=== PATIENT | male | born 1945 | race Caucasian/White ===

== ENCOUNTER 2018-02-16 16:04 | Emergency (ER) | payer MEDICARE, OTHER ==
[~2018-02-16] VITALS: Ht 190.5 cm; Wt 133.8 kg
[~2018-02-16 16:04] MED LIST: ACETAMINOPHEN325 M1 PO; AMBEREN; APHEN325 MG PO; ASPIRIN EC325 M1 PO; B12INJ; COUMADIN 5 MG TA5 M1 PO; DEPO-TESTO100 MG/1 M; DIOVAN320 MG PO; ENOXAPARIN150 MG/11 INJECTION; FISH OIL 1,0001 EAC5 PO; FLEXERIL PO; GLUCOSAMINE1000 MG PO; IBUPROFEN 800800 M1 PO; IBUPROFEN200 M2 PO; JANTOVEN4 MG; LOPRESSOR25 PO; MSM1500 MG PO; NIASPAN 500 MG500 M1; NORVASC 5 MG TAB5 MG PO; NORVASC10 MG PO; POTASSIUM20 PO; PRILOSEC20 MG PO; PRINIVIL10 MG PO; RED YEAST RICE600 M1 PO; TESTIM5 GM; TOPROL XL25 MG PO; WATER PILL
[2018-02-16] MEDS ORDERED: ANTIVERT25 MG PO (16:18)
[2018-02-16] MEDS ORDERED: NITROGLYCERIN0.4 MG SUBLING (16:18)
[2018-02-16] MEDS ORDERED: NORVASC5 MG PO (16:18)
[2018-02-16] MEDS ORDERED: LASIX 20 MG TAB20 MG PO (16:18)
[2018-02-16 18:48] VITALS: BP 163/107
[2018-02-17] MEDS ORDERED: VITAMINC500 PO (00:18)
[2018-02-17] MEDS ORDERED: ASPIRIN81 M2 PO (00:19)
[2018-02-17] MEDS ORDERED: CALCIUM 500 +1 EAC5 PO (00:39)
[2018-02-17] MEDS ORDERED: GLUCOSAMINE HC500 MG PO (00:40)
[2018-02-17] MEDS ORDERED: MAGOX 400400 MG PO (00:41)
[2018-02-17] MEDS ORDERED: UNICOMPLEX M TA1 TA1 PO (00:42)
[2018-02-17] MEDS ORDERED: NIACIN 500 MG500 M1 PO (00:44)
[2018-02-17] MEDS ORDERED: OMEGA-31000 M1 PO (00:47)
== END 2018-02-16 18:48 | disposition home or self-care (01) ==
LOC: M.ERS 16:04
DX: R04.0 Epistaxis (principal); I48.91 Unspecified atrial fibrillation; I10 Essential (primary) hypertension

== ENCOUNTER 2018-02-16 23:43 | Emergency (ER) | payer MEDICARE, OTHER ==
[~2018-02-16] VITALS: Ht 190.5 cm; Wt 133.8 kg
[~2018-02-16 23:43] MED LIST changes: +ANTIVERT25 MG PO; +LASIX 20 MG TAB20 MG PO; +NITROGLYCERIN0.4 MG SUBLING; +NORVASC5 MG PO
[2018-02-17] MEDS ORDERED: VITAMINC500 PO (00:18)
[2018-02-17] MEDS ORDERED: ASPIRIN81 M2 PO (00:19)
[2018-02-17] MEDS ORDERED: CALCIUM 500 +1 EAC5 PO (00:39)
[2018-02-17] MEDS ORDERED: GLUCOSAMINE HC500 MG PO (00:40)
[2018-02-17] MEDS ORDERED: MAGOX 400400 MG PO (00:41)
[2018-02-17] MEDS ORDERED: UNICOMPLEX M TA1 TA1 PO (00:42)
[2018-02-17] MEDS ORDERED: NIACIN 500 MG500 M1 PO (00:44)
[2018-02-17] MEDS ORDERED: OMEGA-31000 M1 PO (00:47)
[2018-02-17 02:25] VITALS: BP 161/97
== END 2018-02-17 02:26 | disposition home or self-care (01) ==
LOC: M.ERS 23:43
DX: R04.0 Epistaxis (principal); I48.91 Unspecified atrial fibrillation; I10 Essential (primary) hypertension; Z90.49 Acquired absence of other specified parts of digestive tract

== ENCOUNTER 2018-02-22 16:30 | Inpatient (IN) | payer MEDICARE, OTHER ==
[~2018-02-22] VITALS: Ht 190.5 cm; Wt 132.4 kg
--- NOTE | ~2018-02-22 | PROC ---
[address] [address] PROCEDURE REPORT Name: NICOLASA GOMEZ Room: [address] IN M.R.#: [id number] Admission: 02/22/18 Attend Phys: Alfonso Posey Discharge: 02/24/18 Date of : 45 Report #: [id number] THIS REPORT FOR: //name// For GI report, please see the Provation report in Perceptive 7 content. By: [facility]7Medical Records Staff LESLIE /HANY
[~2018-02-22 16:30] MED LIST changes: +ASPIRIN81 M2 PO; +CALCIUM 500 +1 EAC5 PO; +GLUCOSAMINE HC500 MG PO; +MAGOX 400400 MG PO; +NIACIN 500 MG500 M1 PO; +OMEGA-31000 M1 PO; +UNICOMPLEX M TA1 TA1 PO; +VITAMINC500 PO
[2018-02-22 16:43] VITALS: BP 156/97
--- NOTE | 2018-02-22 16:48 | NUR ---
RECTAL EXAM PERFORMED BY PROVIDER.
[2018-02-22 17:18] LABS: ABSOLUTE BASOPHILS 0.1 thou/uL (0.0-0.2); ABSOLUTE EOSINOPHILS 0.3 thou/uL (0.0-0.7); ABSOLUTE LYMPHOCYTES 1.5 thou/uL (0.8-5.3); ABSOLUTE MONOCYTES 0.6 thou/uL (0.0-1.2); ABSOLUTE NEUTROPHILS 5.5 thou/uL (1.6-8.1); BASOPHILS 0.9 %; EOSINOPHILS 3.2 %; HEMATOCRIT 43.4 % (42.0-52.0); LYMPHOCYTES 19.1 %; MCH 33.4 pg (26.0-34.0); MCHC 34.5 g/dL (28.0-37.0); MCV 96.7 fL (80.0-100.0); MONOCYTES 7.9 %; MPV 8.7 fl. (7.2-11.1); NUCLEATED RBCS 0 /100WBC; PLATELET COUNT* 181 thou/uL (150-400); POLYS 68.9 %; RBC 4.49 mil/uL (4.50-6.00); RDW-CV 13.7 % (10.5-14.5); WBC 7.9 thou/uL (4.0-11.0)
[2018-02-22 17:47] LABS: CALCIUM 9.2 mg/dL (8.5-10.1); POTASSIUM 4.4 mmol/L (3.5-5.1)
[2018-02-22 17:48] LABS: APTT 48.6 Seconds (25.0-31.3); PROTIME 18.9 Seconds (9.20-11.50)
[2018-02-22 17:51] LABS: ALBUMIN 3.7 g/dL (3.4-5.0); TOTAL PROTEIN 6.9 g/dL (6.4-8.2)
[2018-02-22 20:18] VITALS: BP 142/82
[2018-02-22 20:45] VITALS: BP 174/93
[2018-02-22 21:08] LABS: HEMATOCRIT 45.1 % (42.0-52.0); HEMOGLOBIN 15.2 gm/dL (14.0-18.0)
[2018-02-22 21:14] LABS: INR 1.8; PROTIME 17.6 Seconds (9.20-11.50)
[2018-02-23] VITALS: BP 146/94
[2018-02-23 04:00] VITALS: BP 123/66
[2018-02-23 06:06] LABS: HEMATOCRIT 42.3 % (42.0-52.0); HEMOGLOBIN 14.5 gm/dL (14.0-18.0)
[2018-02-23 06:15] LABS: INR 1.6; PROTIME 15.9 Seconds (9.20-11.50)
[2018-02-23 08:30] VITALS: BP 125/78
[2018-02-23 08:56] LABS: HEMATOCRIT 44.1 % (42.0-52.0)
[2018-02-23 09:07] LABS: INR 1.5; PROTIME 14.8 Seconds (9.20-11.50)
[2018-02-23 12:00] VITALS: BP 163/97
[2018-02-23 13:13] LABS: HEMATOCRIT 45.7 % (42.0-52.0); HEMOGLOBIN 15.5 gm/dL (14.0-18.0)
[2018-02-23 13:28] LABS: INR 1.5; PROTIME 14.2 Seconds (9.20-11.50)
[2018-02-23 16:00] VITALS: BP 153/98
[2018-02-23 17:19] LABS: HEMATOCRIT 45.3 % (42.0-52.0); HEMOGLOBIN 15.3 gm/dL (14.0-18.0)
[2018-02-23 17:24] LABS: INR 1.5; PROTIME 14.1 Seconds (9.20-11.50)
--- NOTE | 2018-02-23 18:57 | NUR ---
ASSUMED PT CARE AT 0700 PT IS ALERT AND ORIENTED X 4 PT DENIES PAIN OR SOA ON RA, PT IS UP AD ANUSHKA PT IS NOT A FALL RISK, PT REFUSED SUPPLEMENTS AND CERTAIN MEDS THIS AM, PT IS AFIB ON THE MONITOR, GI SAW PT WILL SO A COLONOSCOPY TOMORROW PT IS NPO AT MIDNIGHT, STARTED BOWEL PREP AROUND 1500 PT TAKING MIRALAX AND GACE BISACODYL AROUND 1800 PT IS ON CLEAR LIQUID DIET WILL CONTINUE TO MONITOR GOT LISINOPRIL AND METOPROLOL CHANGED TO BEDTIME PT TAKES THESE AT HOME AT THOSE TIMES
[2018-02-23 19:42] VITALS: BP 132/80
[2018-02-23 21:03] LABS: HEMATOCRIT 44.8 % (42.0-52.0); HEMOGLOBIN 15.2 gm/dL (14.0-18.0)
[2018-02-23 21:12] LABS: INR 1.4; PROTIME 13.6 Seconds (9.20-11.50)
[2018-02-24] VITALS (7 sets, daily range): BP systolic 127–153; BP diastolic 79–99
[2018-02-24 04:35] LABS: HEMATOCRIT 43.3 % (42.0-52.0); HEMOGLOBIN 14.6 gm/dL (14.0-18.0); MCH 33.1 pg (26.0-34.0); MCHC 33.9 g/dL (28.0-37.0); MCV 97.9 fL (80.0-100.0); MPV 9.1 fl. (7.2-11.1); RBC 4.42 mil/uL (4.50-6.00); RDW-CV 13.8 % (10.5-14.5); WBC 8.4 thou/uL (4.0-11.0)
[2018-02-24 04:50] LABS: ALBUMIN 3.6 g/dL (3.4-5.0); CALCIUM 8.4 mg/dL (8.5-10.1); CREATININE 0.7 mg/dL (0.6-1.3); POTASSIUM 3.9 mmol/L (3.5-5.1); TOTAL BILIRUBIN 1.1 mg/dL (<0.1-1.0); TOTAL PROTEIN 6.3 g/dL (6.4-8.2)
--- NOTE | 2018-02-24 04:52 | NUR ---
PT AAOX4 RESP REG AND UNLABORED SKIN W/D NO ACUTE DISTRESS NOTED. PT COMPLETED BOWEL PREP AND HAS HAD SOME LIGHT YELLOW LIQUID STOOL. VSS. TELEMETRY PACK INTACT WITH ALARMS SET. NO ACUTE CHANGES DURIGN SHIFT. NO RECTAL BLEEDING REPORTED. WILL CONTIUE TO MONITOR
[2018-02-24] MEDS ORDERED: LISINOPRIL20 MG PO (11:22)
--- NOTE | 2018-02-24 12:54 | EKG ---
[place] [address] ELECTROCARDIOGRAM REPORT Name: NICOLASA GOMEZ Room: [address] IN .R.#: [id number] Admission: 02/22/18 Attend Phys: Alfonso Posey Discharge: Date of : 45 Report #: [id number] THIS REPORT FOR: //name// [facility] ED Test Date: 2018-02-22 Test Time: 19:44:05 Pat Name: NICOLASA GOMEZ Department: Room: Gender: M [employer] Tender: : 1945 Requested By: Roland Quinones Order Number: [id number] MD: Merrill Hurtado Measurements Intervals [place] Rate: 71 P: [place]: QRS: 36 QRSD: 114 T: 8 QT: 401 QTc: 436 Interpretive Statements Atrial fibrillation Borderline intraventricular conduction delay Compared to ECG 06/05/2012 08:08:39 Ventricular premature complex(es) no longer present Electronically Signed On 02-24-2018 12:53:51 CDT by Merrill Hurtado [email or web address] <ELECTRONICALLY SIGNED> By: Merrill Hurtado MD, [facility] 02/24/18 1253 43 43 Merrill Hurtado MD, FAC /EPI
--- NOTE | 2018-02-24 15:46 | NUR ---
CM SPOKE TO THE PATIENT TO DISCUSS HOME SITUATION, DISCHARGE PLANNING, AND TO INFORM OF THE ROLE OF CM. PATIENT ALERT AND ORIENTED. PATIENT ACTIVE AND INDEPENDENT PRIOR TO ADMISSION. PATIENT RESIDES AT HOME WITH SPOUSE. PATIENT USES 0 DME. PATIENT PLANS TO RETURN HOME AT D/C AND DOES NOT ANTICIATE ANY DISCHARGE PLANNING NEEDED. CM WILL REMAIN AVIALABLE TO ASSIST AND FOLLOW NEEDED.
--- NOTE | 2018-03-07 07:11 | CON ---
[address] [address] CONSULTATION Name: NEAL GOMEZ Room: [address] IN .R.#: [id number] Admission: 02/22/18 Attend Phys: Alfonso Posey Discharge: 02/24/18 Date of : 45 Report #: [id number] THIS REPORT FOR: //name// CC: MARQUITA Jarrell DICTATED BY: Nicole Rivera [facility] DATE OF SERVICE: 02/23/2018 Please note at the time of this dictation, the patient was seen and physically examined by myself. REFERRING PHYSICIAN: Neal Jarrell DO PRIMARY CARE PHYSICIAN: Dr. Marquita Null. REASON FOR CONSULTATION: Rectal bleeding. HISTORY OF PRESENT ILLNESS: This is a pleasant 72-year-old male who presented to the Emergency Room after having 2 bowel movements yesterday without any straining, and he had significant amount of bright red blood noted in the toilet. The patient on 02/16 had been presented here to the Emergency Room with a nosebleed and has had nasal packing placed at that time. He went to the ENT on Wednesday to remove the packing, and he was still having some oozing once the packing was removed. ENT recommended that he stay off his warfarin until Wednesday. Subsequently the following day is when he started having the bright red blood in his stool. The patient denies any history of any constipation or diarrhea. He has no nausea or vomiting or abdominal pain associated with all of this. The patient states he had a colonoscopy done 4-[address] Buenrostro. He thinks he had diverticulosis, otherwise was negative. We will go ahead and obtain those records for our review at this time. ALLERGIES: No known drug allergies. MEDICATIONS FROM HOME: Include potassium, omega 3, niacin, multivitamin, magnesium oxide, glucosamine, Os-Boyd, aspirin, vitamin C, Antivert, Norvasc, Lasix, warfarin, Prinivil and Toprol. PAST MEDICAL HISTORY: Chronic AFib, hypertension. He has had a cardioversion at least 4 different times. PAST SURGICAL HISTORY: Appendectomy, ear surgeries, hernia repair. FAMILY HISTORY: Negative for any GI [place] [address] CONSULTATION Name: NEAL GOMEZ Room: [address]#: [id number] Admission: 02/22/18 Attend Phys: Alfonso Posey Discharge: 02/24/18 Date of : 45 Report #: [id number] SOCIAL HISTORY: Alcohol only on special occasions. Denies any illegal drug use or any tobacco use. REVIEW OF SYSTEMS: Twelve-point review of systems is essentially negative except what is mentioned in the HPI. PHYSICAL EXAMINATION: VITAL SIGNS: Temperature 36.9, pulse 67, respirations 15, blood pressure 124/78. HEART: Regular rate and rhythm. LUNGS: Clear. ABDOMEN: Soft, positive bowel sounds in all 4 quadrants with no masses or tenderness noted. LABORATORY DATA: Hemoglobin on admission was 14.8, he is now 15. Hematocrit 44, white count 7.9, platelets 181. Sodium 138, potassium 4.4, chloride 106, CO2 of 29, BUN is 28, creatinine 1, GFR [address] glucose is [address] of the abdomen and pelvis shows a lipoma in the liver, gallbladder present and diverticulosis, otherwise negative. PT was 14.8 and INR is 1.5. This morning on admission, he was 2. IMPRESSION: 1. Rectal bleeding. 2. Anticoagulant therapy secondary to atrial fibrillation, on warfarin. 3. Diverticulosis. PLAN: 1. Obtain medical records from Dr. Buenrostro's office EMANUEL. 2. Colonoscopy tomorrow with Dr. Grewal. 3. Continue to hold his warfarin. 4. Further recommendations to be made once the patient has been seen. Thank you for allowing us to participate in this patient's care. Please do not hesitate to call with any questions in regard to this consult. ADDENDUM I have seen and examined the patient and agree with the plan as outlined by our nurse practitioner, Nicole Rivera. We will proceed with colonoscopy tomorrow. Since he is not really having any issues with overt hematochezia at this point in time, I will discontinue his serial H and H and protime as labs are completely stable. We will proceed with colonoscopy and see if there is anything that is amenable to endoscopic therapy. If so, [place] [address] CONSULTATION Name: NEAL GOMEZ Room: [address] IN [facility]#: [id number] Admission: 02/22/18 Attend Phys: Alfonso Posey Discharge: 02/24/18 Date of : 45 Report #: [id number] the same. I have discussed the plans with the patient as well and he is agreeable with the same. <ELECTRONICALLY SIGNED> By: Elton Grewal DO 03/07/18710 1226 1830Elton Grewal DO /nt
--- NOTE | 2018-03-16 06:05 | PATH ---
[facility] [address] [place] [address] PATHOLOGY RPT PROCEDURE Name: NEAL GOMEZ Room: [address] IN M.R.#: [id number] Admission: 02/22/18 Date of : 45 Discharge: 02/24/18 Report #: [id number] Path Case #: [id number] [facility] Accession Number: [id number] . 01 Material submitted: . PART A: MID ASCENDING COLON POLYP PART B: PROXIMAL TRANSVERSE COLON POLYP PART C: MID TRANSVERSE COLON POLYP . 01 Clinical history: . Not provided . 02 Diagnosis: A. Mid ascending colon polyp: - Tubular adenoma, negative for high-grade dysplasia. . B. Proximal transverse colon polyp: - Hyperplastic polyp. . C. Mid transverse colon polyp: - Tubular adenoma, negative for high-grade dysplasia. (ARLEN:dipak; 02/28/2018) QMS/02/28/2018 . 02 Electronically signed: . Jayme Mac MD, Pathologist NPI- [id number] . 01 Gross description: . A. Received in formalin labeled "Neal Gomez, mid ascending colon polyp" and consists of 2 soft willson tissue fragments, 0.3 and 0.6 cm which are entirely submitted as A1. . B. Received in formalin labeled "Neal Gomez, proximal transverse colon polyp" and consists of a 0.2 cm soft willson tissue fragment is entirely submitted as B1. . C. Received in formalin labeled "Neal Gomez, mid transverse colon polyp" and consists of 4 soft willson tissue fragments ranging in size from less than 0.1 cm-0.2 cm which are entirely submitted as C1. (SINCERE; 02/25/2018) JBR/JBR . 02 Pathologist provided ICD-10: D12.2, K63.5, D12.3 . 02 CPT . 846594, 849964, 897130 [place] [address] PATHOLOGY RPT PROCEDURE Name: NEAL GOMEZ Room: [address] IN [facility]#: [id number] Admission: 02/22/18 Date of : 45 Discharge: 02/24/18 Report #: [id number] Path Case #: [id number] Performed at: 01 [facility] [place] [address] [place] [address] [address], [place], [place] [id number] MD Augustus Pepper MD Phone: [phone] Performed at: [address] [facility] [address] [place], [place], [place] [address] MD Jayme Mac MD Phone: [phone]
== END 2018-02-24 18:58 | disposition home or self-care (01) | DRG 394 ==
LOC: M.ERS 16:30 → M.2W 19:37 → M.TBA-ER 19:37 → M.2W 20:28
PROVIDERS: Internal Medicine; Personal Emergency Response Attendant; Physician Assistant; ADMIT Internal Medicine
PROC: 0DBL8ZZ Excision of Transverse Colon, Via Natural or Artificial Opening Endoscopic (ICD-10-PCS; principal; 2018-02-24)
PROC: 0DBK8ZZ Excision of Ascending Colon, Via Natural or Artificial Opening Endoscopic (ICD-10-PCS; principal; 2018-02-24)
DX: K64.9 Unspecified hemorrhoids (principal); E87.1 Hypo-osmolality and hyponatremia; D68.69 Other thrombophilia; I48.2 Chronic atrial fibrillation; I10 Essential (primary) hypertension; I25.10 Atherosclerotic heart disease of native coronary artery without angina pectoris; Z79.01 Long term (current) use of anticoagulants; Z95.1 Presence of aortocoronary bypass graft; Z90.49 Acquired absence of other specified parts of digestive tract

== ENCOUNTER → 2018-03-04 | Outpatient (CLI) | payer MEDICARE, OTHER ==
[~2018-03-04] MED LIST changes: +COUMADIN7.5 MG PO; +LISINOPRIL20 MG PO; +VITAMIN B-1100 M1 PO
[2018-03-04 14:44] LABS: ABSOLUTE BASOPHILS 0.1 thou/uL (0.0-0.2); ABSOLUTE EOSINOPHILS 0.3 thou/uL (0.0-0.7); ABSOLUTE LYMPHOCYTES 1.5 thou/uL (0.8-5.3); ABSOLUTE MONOCYTES 0.5 thou/uL (0.0-1.2); ABSOLUTE NEUTROPHILS 4.6 thou/uL (1.6-8.1); BASOPHILS 1.1 %; EOSINOPHILS 3.9 %; HEMATOCRIT 43.3 % (42.0-52.0); HEMOGLOBIN 14.9 gm/dL (14.0-18.0); LYMPHOCYTES 21.6 %; MCH 33.1 pg (26.0-34.0); MCHC 34.3 g/dL (28.0-37.0); MCV 96.6 fL (80.0-100.0); MONOCYTES 7.6 %; MPV 8.4 fl. (7.2-11.1); NUCLEATED RBCS 0 /100WBC; PLATELET COUNT* 183 thou/uL (150-400); POLYS 65.8 %; RBC 4.48 mil/uL (4.50-6.00); RDW-CV 13.3 % (10.5-14.5); WBC 6.9 thou/uL (4.0-11.0)
== END ==
LOC: M.LAB 14:24
PROVIDERS: Internal Medicine Cardiovascular Disease
DX: I10 Essential (primary) hypertension (principal); I48.2 Chronic atrial fibrillation; I25.10 Atherosclerotic heart disease of native coronary artery without angina pectoris; I25.5 Ischemic cardiomyopathy; E78.5 Hyperlipidemia, unspecified; Z95.1 Presence of aortocoronary bypass graft

== ENCOUNTER 2018-03-29 13:55 | Observation (INO) | payer MEDICARE, OTHER ==
[~2018-03-29] VITALS: Ht 190.5 cm; Wt 131.5 kg
[~2018-03-29 13:55] MED LIST changes: -COUMADIN7.5 MG PO; -VITAMIN B-1100 M1 PO
[2018-03-29 14:00] VITALS: BP 175/103
[2018-03-29 14:22] LABS: ABSOLUTE BASOPHILS 0.1 thou/uL (0.0-0.2); ABSOLUTE EOSINOPHILS 0.3 thou/uL (0.0-0.7); ABSOLUTE LYMPHOCYTES 1.4 thou/uL (0.8-5.3); ABSOLUTE MONOCYTES 0.6 thou/uL (0.0-1.2); ABSOLUTE NEUTROPHILS 4.4 thou/uL (1.6-8.1); BASOPHILS 0.9 %; EOSINOPHILS 3.9 %; HEMATOCRIT 45.7 % (42.0-52.0); HEMOGLOBIN 15.8 gm/dL (14.0-18.0); MCH 33.3 pg (26.0-34.0); MCHC 34.6 g/dL (28.0-37.0); MCV 96.3 fL (80.0-100.0); MONOCYTES 8.9 %; MPV 8.5 fl. (7.2-11.1); NUCLEATED RBCS 0 /100WBC; PLATELET COUNT* 151 thou/uL (150-400); POLYS 65.3 %; RBC 4.74 mil/uL (4.50-6.00); RDW-CV 14.2 % (10.5-14.5); WBC 6.7 thou/uL (4.0-11.0)
[2018-03-29 14:28] LABS: ANION GAP 9 mmol/L (7-16); BUN 23 mg/dL (7-18); CALCIUM 8.7 mg/dL (8.5-10.1); CHLORIDE 103 mmol/L (98-107); CO2 27 mmol/L (21-32); CREATININE 0.9 mg/dL (0.6-1.3); GLUCOSE 86 mg/dL (70-99); SODIUM 139 mmol/L (136-145)
[2018-03-29 14:30] LABS: APTT 46.4 Seconds (25.0-31.3); PROTIME 19.4 Seconds (9.20-11.50)
[2018-03-29] MEDS ORDERED: VITAMIN B-1100 M1 PO (14:32)
[2018-03-29] MEDS ORDERED: COUMADIN7.5 MG PO (14:33)
[2018-03-29] MEDS ORDERED: COUMADIN 5 MG TA5 M1 PO (14:34)
[2018-03-29 14:38] LABS: ALBUMIN 4.4 g/dL (3.4-5.0); ALKALINE PHOSPHATASE 59 U/L (46-116); NT-PRO BRAIN NAT PEPTIDE 889 pg/mL (<300); SGOT 24 U/L (15-37); SGPT 32 U/L (30-65); TOTAL PROTEIN 7.3 g/dL (6.4-8.2); TROPONIN-I LEVEL <0.06 ng/mL (<0.06)
[2018-03-29 14:56] LABS: URINE BILIRUBIN NEGATIVE (Negative); URINE BLOOD NEGATIVE (Negative); URINE CLARITY CLEAR; URINE COLOR YELLOW; URINE GLUCOSE-RANDOM NEGATIVE (Negative); URINE KETONES NEGATIVE (Negative); URINE LEUKOCYTES-REFLEX NEGATIVE (Negative); URINE NITRITE-REFLEX NEGATIVE (Negative); URINE PROTEIN NEGATIVE (Negative); URINE SPECIFIC GRAVITY 1.015 (1.005-1.030); URINE UROBILINOGEN 0.2 E.U./dl (0.2-1.0)
[2018-03-29 15:29] VITALS: BP 181/98
[2018-03-29 16:08] VITALS: BP 183/117
[2018-03-29 19:30] VITALS: BP 148/97
[2018-03-30] VITALS: BP 160/99; BP 174/104; BP 181/112
[2018-03-30 04:00] VITALS: BP 135/81
[2018-03-30 08:15] VITALS: BP 155/78
--- NOTE | 2018-03-30 11:56 | EKG ---
[place] [address] ELECTROCARDIOGRAM REPORT Name: NICOLASA GOMEZ Room: [address] ADM IN .R.#: [id number] Admission: 03/29/18 Attend Phys: Alfonso Posey Discharge: Date of : 45 Report #: [id number] THIS REPORT FOR: //name// [facility] ED Test Date: 2018-03-29 Test Time: 14:22:05 Pat Name: NICOLASA GOMEZ Department: Room: [facility] Gender: I O Psychologist: Ramin PONCE : 1945 Requested By: Stephen Feng Order Number: [id number] MD: Gerber Mclean Measurements Intervals [place] Rate: 74 P: [place]: QRS: -14 QRSD: 109 T: 12 QT: 395 QTc: 439 Interpretive Statements Atrial fibrillation consider Inferior infarct, old Compared to ECG 02/22/2018 19:44:05 Myocardial infarct finding now present Electronically Signed On 03-30-2018 11:56:19 CDT by Gerber Mclean [email or web address] <ELECTRONICALLY SIGNED> By: Gerber Mclean MD, [facility] 03/30/18 1156 1422 142 Gerber Mclean MD, [facility] /EPI
[2018-03-30 12:00] VITALS: BP 141/84
--- NOTE | 2018-03-30 12:03 | EKG ---
[place] [address] ELECTROCARDIOGRAM REPORT Name: NEAL GOMEZ Room: [address] ADM IN M.R.#: [id number] Admission: 03/29/18 Attend Phys: Alfonso Posey Discharge: Date of : 45 Report #: [id number] THIS REPORT FOR: //name// [facility] Test Date: 2018-03-30 Test Time: 00:54:23 Pat Name: NEAL GOMEZ Department: Room: [address] Gender: M Lines Tender: JENNY : 1945 Requested By: Neal Jarrell Order Number: [id number] Hien MD: Gerber Mclean Measurements Intervals [place] Rate: 65 P: [place]: QRS: 19 QRSD: 114 T: 35 QT: 437 QTc: 455 Interpretive Statements Atrial fibrillation Borderline intraventricular conduction delay Electronically Signed On 03-30-2018 12:03:28 CDT by Gerber Mclean [email or web address] <ELECTRONICALLY SIGNED> By: Gerber Mclean MD, [facility] 03/30/18 1203 0054 0054 Gerber Mclean MD, FACC /EPI
[2018-03-30 16:23] VITALS: BP 139/97
--- NOTE | 2018-03-30 17:00 | 2DMMODE ---
[place] [address] 2 D/M-MODE ECHOCARDIOGRAM Name: NEAL GOMEZ Room: [facility]- ADM IN [facility]#: [id number] Admission: 03/29/18 Attend Phys: Neal Jarrell Discharge: Date of : 45 Date of Service: 03/30/18 1700 Report #: [id number] THIS REPORT FOR: //name// APPROVED REPORT Study performed: 03/30/2018 16:19:22 EXAM: Comprehensive 2D, Doppler, and color-flow Echocardiogram Patient Location: In-Patient Room #: 221 Status: routine BSA: 2.57 HR: 63 bpm BP: 141/84 mmHg Rhythm: Atrial Fibrillation Other Information Study Quality: Good Indications AMS, dizziness 2D Dimensions LVEF(%): 42.88 (>50%) IVSd: 12.30 (7-11mm) LVOT Diam: 24.41 (18-24mm) LVDd: 62.00 mm PWd: 11.81 (7-11mm) Ascending Ao: 38.47 (22-36mm) LVDs: 48.62 (25-40mm) Aortic Root: 41.00 mm Hood's LVEF: 42.88 % Volumes Left Atrial Volume (Systole) LA ESV Index: 58.00 mL/m2 Aortic Valve AoV Peak Bunny.: 1.23 m/s AO Peak Gr.: 6.07 mmHg LVOT Max P.48 mmHg AO Mean Gr.: 3.52 mmHg LVOT Mean P.04 mmHg LVOT Max V: 1.06 m/s AO V2 VTI: 24.74 cm LVOT Mean V: 0.64 m/s NATALI (VTI): 4.15 cm2 LVOT V1 VTI: 21.93 cm Mitral Valve MV Decel. Time: 156.43 [place] [address] 2 D/M-MODE ECHOCARDIOGRAM Name: NEAL GOMEZ Room: [address] IN .R.#: [id number] Admission: 03/29/18 Attend Phys: Neal Jarrell Discharge: Date of : 45 Date of Service: 03/30/18 1700 Report #: [id number] MV PHT: 45.36 ms MVA (PHT): 4.85 cm2 TDI Medial E' Bunny.: 0.09 m/s Lateral E' Bunny.: 0.11 m/s Pulmonary Valve PV Peak Bunny.: 0.82 m/s PV Peak Gr.: 2.68 mmHg Tricuspid Valve RAP Estimate: 5.00 mmHg TR Peak Gr.: 24.95 mmHg RVSP: 29.95 mmHg PA Pressure: 29.95 mmHg Left Ventricle Left ventricle is mildly dilated. There is mild global hypokinesis. Mild concentric left ventricular hypertrophy. Left ventricular systolic function is mildly decreased. LVEF is 45-50%. This study is not technically sufficient to allow evaluation of the LV diastolic function due to atrial fibrillation. Right Ventricle Right ventricle is mildly dilated. The right ventricular systolic function is normal. Atria Left atrium is severely dilated. Right atrium is moderately dilated. Aortic Valve The aortic valve is normal in structure. No aortic regurgitation is present. There is no aortic valvular stenosis. Mitral Valve The mitral valve is normal in structure. Mild mitral regurgitation. No evidence of mitral valve stenosis. Tricuspid Valve The tricuspid valve is normal in structure. Mild tricuspid regurgitation. The RVSP is 31 mmHg. Pulmonic Valve The pulmonary valve is normal in structure. Mild [place]mon[place] [address] 2 D/M-MODE ECHOCARDIOGRAM Name: NEAL GOMEZ Room: [address] IN [facility]#: [id number] Admission: 03/29/18 Attend Phys: Neal Jarrell Discharge: Date of : 45 Date of Service: 03/30/18 1700 Report #: [id number] Great Vessels The aortic root is normal in size. IVC is normal in size and collapses with >50% inspiration Pericardium There is no pericardial effusion. <Conclusion> Left ventricle is mildly dilated. Mild concentric left ventricular hypertrophy. Left ventricular systolic function is mildly decreased. LVEF is 45-50%. This study is not technically sufficient to allow evaluation of the LV diastolic function due to atrial fibrillation. There is mild global hypokinesis. Right ventricle is mildly dilated. Left atrium is severely dilated. Right atrium is moderately dilated. Mild mitral regurgitation. Mild tricuspid regurgitation. The RVSP is 31 mmHg. <ELECTRONICALLY SIGNED> By: Chris Leal MD, FACC 03/30/181699 99 99 Chris Leal MD, FACC /INF
[2018-03-30 18:33] VITALS: BP 139/97
[2018-03-31 07:25] LABS: CHOLESTEROL 204 mg/dL (<200); HDL CHOLESTEROL 40 mg/dL (>40); LDL CHOLESTEROL 142 mg/dL (<100); TC:HDL 5.1 Ratio (Not establshd); TRIGLYCERIDE 113 mg/dL (<150); VLDL 23 mg/dL (<40)
[2018-03-31 07:26] LABS: SERUM ASSESSMENT Clear
--- NOTE | 2018-04-01 17:14 | CON ---
[address] [address] CONSULTATION Name: NICOLASA GOMEZ Room: [address] Latonya Isaac#: [id number] Admission: 03/29/18 Attend Phys: Alfonso Posey Discharge: 03/30/18 Date of : 45 Report #: [id number] THIS REPORT FOR: //name// CC: Merrill Jarrell DATE OF SERVICE: 03/30/2018 CARDIOLOGY CONSULTATION HISTORY OF PRESENT ILLNESS: The patient is a 72-year-old white male who I was asked to see in the hospital today because of his history of atrial fibrillation. The patient has an extensive and complicated past medical history. Unfortunately, most of his records are at [facility]. The patient has had atrial fibrillation since the . He previously saw Dr. Goodwin. He apparently had 3 cardioversions in the past, but had recurrent atrial fibrillation and has finally decided to aim for rate control and anticoagulation. He has been on warfarin for years. He has been on metoprolol for rate control. He apparently had a nosebleed a month ago and had to have his nose packed. Several months ago, he had episodes where the room was spinning. He was told he had vertigo. He was given a sedative. Recently, he also had blood in stool and had a colonoscopy and had a polyp removed. The patient notes he actually saw Dr. Escamilla, his inside sales administrator at [facility] a week ago. No changes were made in his medications. However, recently, he complained of lightheaded spells. He denied any vomiting or diarrhea. He has had no syncope. He denies his heart racing. He denies any chest pain. He does get short of breath on exertion, has chronic edema. PAST MEDICAL HISTORY: He has had an appendectomy, hernia repair, hypertension, hyperlipidemia. MEDICATIONS: Consists of amlodipine, aspirin, Lasix for chronic edema, lisinopril, metoprolol, niacin, potassium, warfarin. ALLERGIES: HE HAS AN INTOLERANCE TO STATIN DRUGS. FAMILY HISTORY: Positive for heart disease. SOCIAL HISTORY: He is . He and his live outside [place], [place]. 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 He exercised on a stationary bicycle. No smoking or alcohol abuse. REVIEW OF SYSTEMS: He has had no history of stroke, asthma, peptic ulcer disease, liver disease, kidney disease, cancer, psychiatric illness, [place] [address] CONSULTATION Name: ESCOBARALVAREZNICOLASA Ramin Room: [address] Marlin#: [id number] Admission: 03/29/18 Attend Phys: Alfonso Posey Discharge: 03/30/18 Date of : 45 Report #: [id number] PHYSICAL EXAMINATION: GENERAL: Revealed an elderly male who appeared in no distress. VITAL SIGNS: He had a blood pressure of 160/80, pulse 66. He is afebrile. HEENT: Pupils are anicteric. Conjunctivae pink. Mucous members moist. NECK: Neck veins do not appear distended. No carotid bruits. Neck supple. CHEST: Clear to auscultation. CARDIOVASCULAR: Irregular rhythm. ABDOMEN: Soft. EXTREMITIES: Had trace edema. Dorsalis pedis pulse not palpated. SKIN: Cool and dry. NEUROLOGIC: Nonfocal. LYMPH: No adenopathy. MUSCULOSKELETAL: No joint effusion. ECG, atrial fibrillation with controlled response. His workup, he had x-rays so far that included head CT scan without contrast that showed no significant abnormality. His chest x-ray yesterday showed mild cardiomegaly. LABORATORY DATA: Sodium 139, creatinine 0.9. Liver function studies were normal. Troponin 0.06. BNP 889. His TSH was 1.7. White blood cell count 6.7, hemoglobin 15.8. INR 2.0. IMPRESSION AND RECOMMENDATIONS: 1. Lightheaded spells, reason unclear. I would suggest given his high blood pressure medications at different times. I will consider giving the amlodipine at night time, lisinopril at noon and metoprolol in the morning. 2. Atrial fibrillation. Rate controlled with a beta el. I would continue anticoagulation, maintain his INR 2-3. 3. Coronary artery disease, previous bypass surgery. Since the patient is on warfarin, I would not recommend aspirin. 4. Hypertension. The patient on a calcium el, GELACIO inhibitor and beta el. 5. Hyperlipidemia. The patient cannot tolerate statin drugs. I would suggest taking 1 red yeast rice tablets twice a day. His lipid profile in August showed a cholesterol of 169, triglyceride 66, HDL 43, LDL 113. 6. History of vertigo. 7. Previous removal of colon polyp. 8. Recent nosebleed. <ELECTRONICALLY SIGNED> By: Gerber Mclean MD, [facility] 04/01/18 1714 1016 0058Dadeanne Mclean MD, [facility] /nt
--- NOTE | 2018-04-04 17:33 | EEG ---
[address] [address] EEG STUDY REPORT Name: NICOLASA GOMEZ Room: [address] M.RLena#: [id number] Admission: 03/29/18 Attend Phys: Alfonso Posey Discharge: 03/30/18 Date of : 45 Report #: [id number] THIS REPORT FOR: //name// CC: Merrill Jarrell DATE OF SERVICE: 03/30/2018 This patient is being evaluated for multiple episodes of vertigo. EEG is being done to evaluate for the possibility of seizure. EEG was done by placing the electrodes by standard 10-20 system of electrode placement. Both referential and sequential montages were used for recording. Background activity in this patient's EEG is about 10-11 Hz and 40 microvolt. The patient went to sleep that was associated with bilaterally symmetrical sleep spindle and vertex sharp waves. Photic stimulation was unremarkable. Throughout the record, no active epileptiform activity was noticed. IMPRESSION: This patient's EEG was unremarkable. Thank you very much for this referral. <ELECTRONICALLY SIGNED> By: Galileo García MD 04/04/18 1733 1116 1140Galileo García MD /nt
--- NOTE | 2018-04-04 17:33 | CON ---
[address] [address] CONSULTATION Name: NICOLASA GOMEZ Room: [address] Latonya Isaac#: [id number] Admission: 03/29/18 Attend Phys: Alfonso Posey Discharge: 03/30/18 Date of : 45 Report #: [id number] THIS REPORT FOR: //name// CC: Merrill Jarrell DATE OF SERVICE: 03/30/2018 HISTORY OF PRESENT ILLNESS: This is a 72-year-old male patient who was evaluated by me for an episode of dizziness. The patient gives a history that he woke up yesterday with an episode of dizziness. He was also wobbly. If he moved his head, it made it worse. If he was in upright position, that was also worse. He described his dizziness as severe. He had two more episodes with the last 2 months. He saw an ENT physician who gave him some exercises and also gave him some medication, which he did not take because it made him sleepy. His episode resolves within an hour or so. He also has some nonspecific symptoms with the head in the last few weeks. REVIEW OF SYSTEMS: Indicates that he has no prior history of stroke. He may have an episode of diplopia. He had a pretty severe episode of epistaxis. I carried out rest of the 14-point review of system, which looks mostly unremarkable. It does look like when he came here, he was significantly hypertensive. His EKG does indicate he has atrial fibrillation. It looks like he is on Coumadin, but at one time, he also had what looks like pretty severe epistaxis, but he is not having that problem presently. Rest of the 14-point review of system was unremarkable, and presently, he was not complaining of any ophthalmological symptoms. He is not complaining of any cardiac, respiratory, GI, , musculoskeletal, constitutional, dermatological, hematological, psychiatric, throat or allergic symptom associated with present symptomatology. PAST MEDICAL HISTORY: Positive for 2 episodes of dizziness. FAMILY HISTORY: Unremarkable. SOCIAL HISTORY: He drinks occasionally. PHYSICAL EXAMINATION: VITAL SIGNS: His blood pressure is 155/78, respirations 18, pulse is 56, temperature is 98.4. NEUROLOGIC: Indicate that he is alert, responsive, able to follow simple and complex command. His speech, concentration, fund of knowledge and memory is at his baseline. Cranial nerve examination 2-12 looks unremarkable. His strength, sensation, reflexes and tone is symmetrical. He has no cerebellar sign or papilledema. There is no carotid bruit. There is no thyroid mass. He is a reasonably well-developed individual who does not have any dysmorphic features of eyes, [place] [address] CONSULTATION Name: NICOLASA GOMEZ Room: [address] Latonya Isaac#: [id number] Admission: 03/29/18 Attend Phys: Alfonso Posey Discharge: 03/30/18 Date of : 45 Report #: [id number] HEENT: His hearing and vision looks adequate. His pulses are somewhat difficult to feel. He has no edema, cyanosis or jaundice. HEART: His heart , but he has a history of atrial fibrillation. LUNGS: No respiratory difficulty or rhonchi was noticed on either side. LABORATORY DATA: His white count is 6.7. His sodium is 139. He did have a CT scan of the head in the Emergency Room that was mostly unremarkable. The sodium has been normal. IMPRESSION: The patient presents with an episode of dizziness. Because of that, I think we should exclude the posterior fossa pathology, especially we should exclude the possibility of posterior circulation abnormality by doing an MRI in this patient, but more emphasis should be on evaluating for ENT pathology bigger and for that, he may have to see somebody as an outpatient because nobody else comes here. I will also suggest getting a cardiology consult in this patient because he was hypertensive and he has a history of atrial fibrillation and that may have to be monitored more closely as an outpatient to make sure that does not become intermittently irregular. I will check the MRI and MRA to see if there is any systemic pathology, but will suggest working him up for any systemic causes including ENT, which probably need to be done as an outpatient as well as Cardiology to make sure he does not have long-term rhythm problems, which may have to be monitored as an outpatient. <ELECTRONICALLY SIGNED> By: Galileo García MD 04/04/18 1733 0850 [id number] García MD /nt
== END 2018-03-30 19:04 | disposition home or self-care (01) ==
LOC: M.ERS 13:55 → M.2W 14:45 → M.TBA-ER 14:45 → M.2W 14:45
PROVIDERS: Family Medicine; ADMIT Internal Medicine
DX: I48.91 Unspecified atrial fibrillation (principal); I10 Essential (primary) hypertension; K64.9 Unspecified hemorrhoids; E78.00 Pure hypercholesterolemia, unspecified; Z98.890 Other specified postprocedural states; Z86.010 Personal history of colon polyps; Z72.89 Other problems related to lifestyle

== ENCOUNTER → 2018-04-22 | Outpatient (CLI) | payer MEDICARE, OTHER ==
[~2018-04-22] MED LIST changes: +COUMADIN7.5 MG PO; +VITAMIN B-1100 M1 PO
[2018-04-22 15:00] LABS: ABSOLUTE BASOPHILS 0.1 thou/uL (0.0-0.2); ABSOLUTE EOSINOPHILS 0.3 thou/uL (0.0-0.7); ABSOLUTE LYMPHOCYTES 1.7 thou/uL (0.8-5.3); ABSOLUTE MONOCYTES 0.6 thou/uL (0.0-1.2); ABSOLUTE NEUTROPHILS 4.4 thou/uL (1.6-8.1); BASOPHILS 1.1 %; EOSINOPHILS 3.8 %; HEMATOCRIT 43.9 % (42.0-52.0); HEMOGLOBIN 15.3 gm/dL (14.0-18.0); LYMPHOCYTES 24.4 %; MCH 33.5 pg (26.0-34.0); MCHC 34.9 g/dL (28.0-37.0); MONOCYTES 8.3 %; MPV 8.3 fl. (7.2-11.1); NUCLEATED RBCS 0 /100WBC; PLATELET COUNT* 169 thou/uL (150-400); POLYS 62.4 %; RBC 4.57 mil/uL (4.50-6.00); RDW-CV 13.5 % (10.5-14.5)
[2018-04-22 15:12] LABS: ALBUMIN 3.9 g/dL (3.4-5.0); CALCIUM 8.5 mg/dL (8.5-10.1); CREATININE 0.9 mg/dL (0.6-1.3); POTASSIUM 4.2 mmol/L (3.5-5.1); TOTAL BILIRUBIN 0.9 mg/dL (<0.1-1.0); TOTAL PROTEIN 7.1 g/dL (6.4-8.2)
[2018-04-23 03:07] LABS: TESTOSTERONE 1112 ng/dL (264-916)
== END ==
LOC: M.LAB 14:36
PROVIDERS: Urology
DX: N40.3 Nodular prostate with lower urinary tract symptoms (principal); N42.30 Unspecified dysplasia of prostate; N28.1 Cyst of kidney, acquired; I10 Essential (primary) hypertension; E78.5 Hyperlipidemia, unspecified; I48.2 Chronic atrial fibrillation; I25.10 Atherosclerotic heart disease of native coronary artery without angina pectoris; Z79.899 Other long term (current) drug therapy

== ENCOUNTER → 2018-09-20 | Outpatient (CLI) | payer MEDICARE, OTHER | LOC: M.CT 11:10 | DX: N28.1 Cyst of kidney, acquired (principal); K40.90 Unilateral inguinal hernia, without obstruction or gangrene, not specified as recurrent; D17.79 Benign lipomatous neoplasm of other sites; Z90.49 Acquired absence of other specified parts of digestive tract ==

== ENCOUNTER 2018-09-27 20:04 | Emergency (ER) | payer MEDICARE, OTHER ==
[~2018-09-27] VITALS: Ht 190.5 cm; Wt 137.0 kg
[2018-09-27 21:07] LABS: URINE BILIRUBIN NEGATIVE (Negative); URINE BLOOD NEGATIVE (Negative); URINE CLARITY CLEAR; URINE COLOR YELLOW; URINE GLUCOSE-RANDOM NEGATIVE (Negative); URINE KETONES NEGATIVE (Negative); URINE LEUKOCYTES-REFLEX NEGATIVE (Negative); URINE NITRITE-REFLEX NEGATIVE (Negative); URINE PROTEIN NEGATIVE (Negative); URINE SPECIFIC GRAVITY 1.015 (1.005-1.030); URINE UROBILINOGEN 0.2 E.U./dl (0.2-1.0)
[2018-09-27 21:12] LABS: ABSOLUTE BASOPHILS 0.1 thou/uL (0.0-0.2); ABSOLUTE EOSINOPHILS 0.2 thou/uL (0.0-0.7); ABSOLUTE LYMPHOCYTES 1.6 thou/uL (0.8-5.3); ABSOLUTE MONOCYTES 0.6 thou/uL (0.0-1.2); ABSOLUTE NEUTROPHILS 4.9 thou/uL (1.6-8.1); EOSINOPHILS 3.1 %; HEMATOCRIT 45.1 % (42.0-52.0); HEMOGLOBIN 15.4 gm/dL (14.0-18.0); LYMPHOCYTES 21.4 %; MCH 33.2 pg (26.0-34.0); MCHC 34.1 g/dL (28.0-37.0); MCV 97.3 fL (80.0-100.0); MONOCYTES 8.1 %; MPV 9.2 fl. (7.2-11.1); NUCLEATED RBCS 0 /100WBC; PLATELET COUNT* 130 thou/uL (150-400); POLYS 66.4 %; RBC 4.64 mil/uL (4.50-6.00); RDW-CV 14.2 % (10.5-14.5); WBC 7.4 thou/uL (4.0-11.0)
[2018-09-27 21:16] LABS: ANION GAP 9 mmol/L (7-16); BUN 24 mg/dL (7-18); CALCIUM 8.8 mg/dL (8.5-10.1); CHLORIDE 104 mmol/L (98-107); CO2 29 mmol/L (21-32); CREATININE 1.1 mg/dL (0.6-1.3); GLUCOSE 90 mg/dL (70-99); POTASSIUM 4.1 mmol/L (3.5-5.1); SODIUM 142 mmol/L (136-145)
[2018-09-27 21:20] LABS: INR 2.6; PROTIME 26.6 Seconds (9.20-11.50)
[2018-09-27 21:27] LABS: ALKALINE PHOSPHATASE 79 U/L (46-116); NT-PRO BRAIN NAT PEPTIDE 819 pg/mL (<300); SGOT 29 U/L (15-37); SGPT 35 U/L (30-65); TOTAL BILIRUBIN 0.7 mg/dL (<0.1-1.0); TOTAL PROTEIN 7.1 g/dL (6.4-8.2); TROPONIN-I LEVEL <0.06 ng/mL (<0.06)
[2018-09-27 22:13] VITALS: BP 167/97
--- NOTE | 2018-09-28 13:06 | EKG ---
[place] [address] ELECTROCARDIOGRAM REPORT Name: JASONNICOLASA Ramin [facility] Marlin#: [id number] Admission: 09/27/18 Attend Phys: Discharge: 09/27/18 Date of : 45 Report #: [id number] THIS REPORT FOR: //name// [facility] ED Test Date: 2018-09-27 Test Time: 20:20:14 Pat Name: NICOLASA GOMEZ Department: Room: Gender: M [place] Pilot: : 1945 Requested By: Martine Ledesma Order Number: [id number] MD: Gerber Mclean Measurements Intervals [place] Rate: 91 P: [place]: QRS: -7 QRSD: 110 T: 19 QT: 368 QTc: 453 Interpretive Statements Atrial fibrillation Inferior infarct, old Compared to ECG 03/30/2018 00:54:23 no change Electronically Signed On 09-28-2018 13:06:19 COLLAR POINTER by Gerber Mclean [email or web address] <ELECTRONICALLY SIGNED> By: Gerber Mclean MD, [facility] 09/28/18 1306 19 19 Gerber Mclean MD, FACC /EPI
== END 2018-09-27 22:15 | disposition home or self-care (01) ==
LOC: M.ERS 20:04
PROVIDERS: Emergency Medicine
DX: R42 Dizziness and giddiness (principal); I48.91 Unspecified atrial fibrillation; I10 Essential (primary) hypertension; Z90.49 Acquired absence of other specified parts of digestive tract

== ENCOUNTER 2018-11-07 11:12 | Emergency (ER) | payer MEDICARE, OTHER ==
[~2018-11-07] VITALS: Ht 190.5 cm; Wt 136.1 kg
[2018-11-07] MEDS ORDERED: VITAMIN B COMP1 EACH PO (11:21)
[2018-11-07] MEDS ORDERED: RED YEAST RICE600 M1 PO (11:22)
[2018-11-07] MEDS ORDERED: MAGOX 400400 MG PO (11:23)
[2018-11-07 11:54] LABS: HEMATOCRIT 44.3 % (42.0-52.0); HEMOGLOBIN 15.3 gm/dL (14.0-18.0); MCH 33.2 pg (26.0-34.0); MCHC 34.5 g/dL (28.0-37.0); MCV 96.5 fL (80.0-100.0); MPV 8.5 fl. (7.2-11.1); RBC 4.59 mil/uL (4.50-6.00); RDW-CV 14.5 % (10.5-14.5)
[2018-11-07 12:02] LABS: INR 2.6
[2018-11-07 12:24] VITALS: BP 129/86
== END 2018-11-07 12:24 | disposition home or self-care (01) ==
LOC: M.ERS 11:12
PROVIDERS: Emergency Medicine Emergency Medical Services
DX: S81.812A Laceration without foreign body, left lower leg, initial encounter (principal); I48.2 Chronic atrial fibrillation; I10 Essential (primary) hypertension; Z90.49 Acquired absence of other specified parts of digestive tract; X58.XXXA Exposure to other specified factors, initial encounter; Y92.89 Other specified places as the place of occurrence of the external cause; Y93.89 Activity, other specified; Y99.8 Other external cause status

== ENCOUNTER 2018-11-20 08:44 | Inpatient (IN) | payer MEDICARE, OTHER ==
[~2018-11-20] VITALS: Ht 190.5 cm; Wt 133.8 kg
[~2018-11-20 08:44] MED LIST changes: +VITAMIN B COMP1 EACH PO
[2018-11-20 08:45] VITALS: BP 185/108
[2018-11-20 09:32] LABS: HEMATOCRIT 42.2 % (42.0-52.0); HEMOGLOBIN 14.6 gm/dL (14.0-18.0); MCH 32.6 pg (26.0-34.0); MCHC 34.5 g/dL (28.0-37.0); MCV 94.5 fL (80.0-100.0); MPV 9.2 fl. (7.2-11.1); NUCLEATED RBCS 0 /100WBC; PLATELET COUNT* 119 thou/uL (150-400); RBC 4.46 mil/uL (4.50-6.00); RDW-CV 13.6 % (10.5-14.5)
[2018-11-20 09:40] LABS: PROTIME 20.1 Seconds (9.20-11.50)
[2018-11-20 09:58] LABS: ALBUMIN 3.9 g/dL (3.4-5.0); CALCIUM 8.5 mg/dL (8.5-10.1); POTASSIUM 3.8 mmol/L (3.5-5.1); TOTAL BILIRUBIN 1.8 mg/dL (<0.1-1.0); TOTAL PROTEIN 7.2 g/dL (6.4-8.2); URIC ACID* 4.8 mg/dL (2.6-7.2)
[2018-11-20 10:37] LABS: ESR (SEDRATE) 10 mm/hr (0-20)
[2018-11-20 10:41] LABS: ABSOLUTE MONOCYTES 0.4 thou/uL (0.0-1.2); ABSOLUTE NEUTROPHILS 9.6 thou/uL (1.6-8.1); PLATELET ESTIMATE DECREASED
[2018-11-20 13:33] VITALS: BP 171/95
[2018-11-20 16:37] VITALS: BP 175/104
[2018-11-20 17:34] VITALS: BP 164/88
[2018-11-20 19:30] VITALS: BP 139/96
[2018-11-21 00:30] VITALS: BP 136/67; BP 160/91
[2018-11-21 04:00] LABS: HEMOGLOBIN 14.1 gm/dL (14.0-18.0); MCH 32.9 pg (26.0-34.0); MCHC 34.4 g/dL (28.0-37.0); MCV 95.7 fL (80.0-100.0); MPV 8.9 fl. (7.2-11.1); RBC 4.29 mil/uL (4.50-6.00); RDW-CV 13.7 % (10.5-14.5); WBC 15.1 thou/uL (4.0-11.0)
[2018-11-21 04:13] LABS: CALCIUM 8.4 mg/dL (8.5-10.1); CREATININE 0.9 mg/dL (0.6-1.3); POTASSIUM 3.9 mmol/L (3.5-5.1)
[2018-11-21 04:26] LABS: INR 2.6
[2018-11-21 08:50] VITALS: BP 142/86
--- NOTE | 2018-11-21 13:52 | 2DMMODE ---
[place] [address] 2 D/M-MODE ECHOCARDIOGRAM Name: NICOLASA GOMEZ Room: [address] IN M.R.#: [id number] Admission: 11/20/18 Attend Phys: Carie Sauceda, Discharge: Date of : 45 Date of Service: 11/21/18 1351 Report #: [id number] THIS REPORT FOR: //name// APPROVED REPORT Study performed: 11/21/2018 11:16:16 EXAM: Comprehensive 2D, Doppler, and color-flow Echocardiogram BSA: 2.59 HR: 73 bpm BP: 136/67 mmHg Other Information Study Quality: FairTechnically Difficult Technically limited study due to inability to position patient. Indications Bacteremia 2D Dimensions IVSd: 13.81 (7-11mm) LVOT Diam: 25.08 (18-24mm) LVDd: 61.04 mm PWd: 12.76 (7-11mm) Ascending Ao: 42.88 (22-36mm) LVDs: 48.23 (25-40mm) Aortic Root: 41.01 mm Volumes Left Atrial Volume (Systole) LA ESV Index: 49.80 mL/m2 Aortic Valve AoV Peak Bunny.: 0.86 m/s AO Peak Gr.: 2.96 mmHg LVOT Max P.24 mmHg AO Mean Gr.: 1.68 mmHg LVOT Mean P.14 mmHg LVOT Max V: 0.75 m/s AO V2 VTI: 18.75 cm LVOT Mean V: 0.49 m/s NATALI (VTI): 3.61 cm2 LVOT V1 VTI: 13.68 cm Mitral Valve E/A Ratio: 3.13 MV Decel. Time: 136.75 ms MV E Max Bunny.: 1.21 m/s MV PHT: 39.66 [place] [address] 2 D/M-MODE ECHOCARDIOGRAM Name: NICOLASA GOMEZ Room: [address] IN .R.#: [id number] Admission: 11/20/18 Attend Phys: Carie Sauceda, Discharge: Date of : 45 Date of Service: 11/21/18 1351 Report #: [id number] MVA (PHT): 5.55 cm2 TDI E/Lateral E': 9.31 E/Medial E': 12.10 Medial E' Bunny.: 0.10 m/s Lateral E' Bunny.: 0.13 m/s Pulmonary Valve PV Peak Bunny.: 0.84 m/s PV Peak Gr.: 2.81 mmHg Tricuspid Valve RAP Estimate: 20.00 mmHg TR Peak Gr.: 43.35 mmHg RVSP: 63.35 mmHg PA Pressure: 63.35 mmHg Left Ventricle Left ventricle is dilated. There is global hypokinesis of the left ventricle. Mild concentric left ventricular hypertrophy. LVEF is 40-45%. Right Ventricle Right ventricle is dilated. The right ventricular systolic function is normal. Atria Left atrium is severely dilated. Right atrium is dilated. Aortic Valve The aortic valve is normal in structure. No aortic regurgitation is present. There is no aortic valvular stenosis. Mitral Valve There is mitral annular calcification. Mild to moderate mitral regurgitation. No evidence of mitral valve stenosis. Tricuspid Valve The tricuspid valve is normal in structure. Mild tricuspid regurgitation. estimated pa pressure 50 mm Hg Pulmonic Valve The pulmonary valve is normal in structure. Trace pulmonic regurgitation. Great Vessels The aortic root is normal in size. The ascending aorta is mildly dilated[place] [address] 2 D/M-MODE ECHOCARDIOGRAM Name: NICOLASA GOMEZ Room: [address] IN [facility]#: [id number] Admission: 11/20/18 Attend Phys: Carie Sauceda, Discharge: Date of : 45 Date of Service: 11/21/18 1351 Report #: [id number] Pericardium There is no pericardial effusion. <Conclusion> Mild concentric left ventricular hypertrophy. LVEF is 40-45%. Left atrium is severely dilated. Mild to moderate mitral regurgitation. Mild tricuspid regurgitation. estimated pa pressure 50 mm Hg <ELECTRONICALLY SIGNED> By: Gerber Mclean MD, FACC 11/21/18 1351 1351 135 Gerber Mclean MD, FACC /INF
[2018-11-21 18:55] VITALS: BP 146/84
[2018-11-21 19:30] VITALS: BP 171/86
[2018-11-21 23:07] LABS: GLYCOHEMOGLOBIN (HGB A1C) 5.3 % (4.8-5.6)
[2018-11-22] VITALS: BP 130/81
[2018-11-22 05:34] LABS: INR 3.2; PROTIME 32.3 Seconds (9.20-11.50)
--- NOTE | 2018-11-22 07:42 | CON ---
[facility] [address] [place] [address] CONSULTATION Name: NICOLASA GOMEZ Room: [address] IN M.R.#: [id number] Admission: 11/20/18 Attend Phys: Carie Saucdea MD Discharge: Date of : 45 Report #: [id number] THIS REPORT FOR: //name// CC: Merrill Null Carie Sauceda DATE OF SERVICE: 11/21/2018 TYPE OF REPORT: Infectious disease consultation. ATTENDING PHYSICIAN: Carie Sauceda M.D. REASON FOR EVALUATION: Lower extremity inflammatory eruption, likely multifactorial including skin and soft tissue infection and also positive blood cultures. HISTORY OF PRESENT ILLNESS: Chart reviewed and the patient examined. This is a 72-year-old with a history of chronic atrial fibrillation, hypertension and also venous stasis insufficiency with dermatitis; who developed a severe pain associated in particular his right lower extremity, in particular his foot and this occurred over the night on Wednesday to Wednesday. He was unable to get out of bed. He called the ambulance. He noted some fevers and some diminished appetite. He is normally on a CPAP at night. It is maintained on supplemental oxygen here. He has had only mild cough. He was empirically placed on vancomycin. As per evaluation, had 2 blood cultures collected now both of which are growing gram-positive cocci. He is not overtly toxic at this point. Denies any significant gastrointestinal related complaints. ALLERGIES: None known. MEDICATIONS: Include gabapentin, warfarin, tramadol, cyanocobalamin, fish oil, niacin, multivitamin, calcium carbonate, aspirin, ascorbic acid, amlodipine, furosemide, vancomycin, hydrocodone, metoprolol, lisinopril, p.r.n. analgesics and antiemetics. PAST MEDICAL HISTORY: As described above, history of atrial fibrillation, hypertension, previous appendectomy, ear surgery, hearing repair. SOCIAL HISTORY: Nonsmoker. Occasional ethanol. No illicit drug use. FAMILY HISTORY: Noncontributory. REVIEW OF SYSTEMS: Otherwise, unremarkable 10-point review of systems except noted above history of present illness. PHYSICAL EXAMINATION: [place] [address] CONSULTATION Name: NICOLASA GOMEZ Room: [address] IN [facility]#: [id number] Admission: 11/20/18 Attend Phys: Carie Sauceda MD Discharge: Date of : 45 Report #: [id number] GENERAL: He is alert, cooperative, appropriate, is in [id number] distress secondary to some leg pain, appears to be generally well nourished. VITAL SIGNS: Temperature 98.3, T-max of 101.7 earlier, pulse 77, respirations 18 and blood pressure 142/86. SKIN: Warm and dry. HEENT: Normocephalic. Extraocular muscle intact. NECK: Supple. Does have nasal cannula oxygen in place. LUNGS: Few scattered coarse breath sounds at the bases, some crackles. HEART: Irregular. I do not appreciate any murmur. ABDOMEN: Obese, soft and nontender. EXTREMITIES: Bilateral lower extremities have changes consistent with venous stasis insufficiency, chronic dermatitis and dermopathy and discoloration. There is a moderate degree of swelling bilaterally, right greater than left. He is palpably tender with a couple of superficial excoriations. There are no bullous lesions and no ulcers. GENITOURINARY: Deferred. RECTAL: Deferred. RADIOLOGICAL DATA: X-ray of the foot was otherwise unremarkable for bony changes or degenerative changes about the mid foot joints. Venous Doppler of the right lower extremity showed no evidence of deep venous thrombosis. Arterial Dopplers done as well, which showed no significant arterial occlusive disease. LABORATORY DATA: Sodium 135, potassium 3.8, chloride 100, bicarbonate is 27, anion gap of 8, BUN and creatinine 22 and 1.0 and glucose of 147. LFTs unremarkable. Albumin of 3.9, total protein 7.2 and estimated GFR 73. CRP elevated at 113. Lactic acid 1.3. CBC: White count of 11.0, H and H 14.6 and 42.2 and platelets of 119. Sed rate of 10. Blood cultures described above, 2/2 with Gram-positive cocci. ASSESSMENT AND PLAN: Gram-positive septicemia in the setting of appears to be skin and soft tissue infection of the lower extremity and cellulitis. We would review this is a true positive at this point. We will await the results. Continue the vancomycin for the moment. He has historically used compression; however, apparently he has been somewhat less compulsive about using it recently. This will be something he will need a roasterman. We will begin utilize elevation while he is here. I think pain at this point probably will not allow compression of the lower extremity. As he improved, so we will that. We will monitor expectantly. <ELECTRONICALLY SIGNED> By: Jordon Ojeda MD 11/22/18 0742 1127 [id number] Ojeda MD /nt
[2018-11-22 15:55] VITALS: BP 133/97
[2018-11-22 19:40] VITALS: BP 141/73
[2018-11-23 05:02] LABS: INR 2.5; PROTIME 25.8 Seconds (9.20-11.50)
[2018-11-23 07:18] VITALS: BP 168/84
[2018-11-23 16:03] VITALS: BP 148/91
[2018-11-23 21:00] VITALS: BP 147/92
[2018-11-24 04:33] LABS: PROTIME 20.3 Seconds (9.20-11.50)
[2018-11-24 08:05] VITALS: BP 141/89
[2018-11-24 20:30] VITALS: BP 146/77
[2018-11-25 04:56] LABS: HEMATOCRIT 38.1 % (42.0-52.0); HEMOGLOBIN 12.9 gm/dL (14.0-18.0); MCH 32.7 pg (26.0-34.0); MCHC 33.9 g/dL (28.0-37.0); MCV 96.3 fL (80.0-100.0); MPV 9.4 fl. (7.2-11.1); RBC 3.95 mil/uL (4.50-6.00); RDW-CV 13.6 % (10.5-14.5); WBC 8.6 thou/uL (4.0-11.0)
[2018-11-25 05:03] LABS: PROTIME 20.6 Seconds (9.20-11.50)
[2018-11-25 05:04] LABS: CALCIUM 8.4 mg/dL (8.5-10.1); CREATININE 0.9 mg/dL (0.6-1.3); MAGNESIUM 1.9 mg/dL (1.8-2.4); POTASSIUM 4.9 mmol/L (3.5-5.1)
[2018-11-25 08:00] VITALS: BP 155/98
[2018-11-25 16:30] VITALS: BP 139/93
[2018-11-25 20:00] VITALS: BP 148/89
[2018-11-26 04:09] LABS: INR 2.2; PROTIME 22.4 Seconds (9.20-11.50)
[2018-11-26 08:10] VITALS: BP 136/82
[2018-11-26 17:19] VITALS: BP 131/71
[2018-11-26 20:27] VITALS: BP 147/90
[2018-11-27 04:34] LABS: INR 2.4; PROTIME 24.5 Seconds (9.20-11.50)
[2018-11-27 04:36] LABS: CALCIUM 8.7 mg/dL (8.5-10.1); CREATININE 0.9 mg/dL (0.6-1.3); POTASSIUM 4.3 mmol/L (3.5-5.1)
[2018-11-27 04:43] LABS: HEMATOCRIT 37.9 % (42.0-52.0); MCH 32.8 pg (26.0-34.0); MCHC 34.2 g/dL (28.0-37.0); MCV 95.8 fL (80.0-100.0); RBC 3.96 mil/uL (4.50-6.00); RDW-CV 13.6 % (10.5-14.5)
[2018-11-27 07:15] VITALS: BP 129/81
[2018-11-27 16:00] VITALS: BP 132/81
[2018-11-27 20:50] VITALS: BP 153/81
[2018-11-28 04:47] LABS: INR 3.2; PROTIME 32.2 Seconds (9.20-11.50)
--- NOTE | 2018-11-28 13:37 | CON ---
[address] [address] CONSULTATION Name: NICOLASA GOMEZ Room: [address] IN .R.#: [id number] Admission: 11/20/18 Attend Phys: Carie Sauceda MD Discharge: Date of : 45 Report #: [id number] THIS REPORT FOR: //name// CC: Merrill Sauceda DATE OF SERVICE: 11/21/2018 HISTORY OF PRESENT ILLNESS: This is a 72-year-old male patient who was evaluated by me for the possibility of neuropathy. The patient is complaining of pain in the right foot. History is not clear, looks like he had some symptoms in the lower extremities for 20 years. Those symptoms are mostly tingling and numbness. The pain is just a few days' duration. It is mostly in the right foot and he is not able to move his right foot because of pain. He also has some slurring there. His mobility is pretty restricted. He is not a diabetic. REVIEW OF SYSTEMS: Indicates that he has pain in the right lower extremity. He has some pain in the left foot. He has discoloration of his both legs, but that is longstanding duration. Cellulitis is being considered and this patient is going to be evaluated by ID. Record indicate that he has a history of atrial fibrillation. His blood sugar is 141. He drinks alcohol very rarely. So, he has limited factors for neuropathy. He is not complaining of any new eye, ENT, cardiac, respiratory, GI, , constitutional, dermatological, hematological, psychiatric, throat or allergic symptom associated with present symptomatology. PAST MEDICAL HISTORY: Positive for some symptoms in the lower extremities, but they were not very prominent. FAMILY HISTORY: Negative for any neuropathy. SOCIAL HISTORY: He does not drink alcohol on a regular basis. PHYSICAL EXAMINATION: Examination indicate he is alert, responsive, able to follow simple and complex command. His speech, concentration, fund of knowledge and memory is at his baseline. Cranial nerve examination 2-12 looks unremarkable. His neuromuscular examination and the right foot is difficult to carry out because the patient has extreme amount of pain there. He has difficulty moving the right foot because of pain, but his both knee jerks are normal. I cannot tell about ankle jerk because he does not relax because of pain. His position sense is normal in both lower extremities. His strength in rest of both upper extremities is normal and so is tone. Xogkof-id-xazh is unremarkable. I could not look at the patient's fundus. He is a very well developed individual. His hearing and vision looks adequate. He has no thyroid mass. Cardiac examination is unremarkable. No respiratory difficulty or rhonchi was noticed. Blood pressure is 142/86, respirations 18, pulse is 77, [place] [address] CONSULTATION Name: JASONNICOLASA Ramin Room: [address] IN .R.#: [id number] Admission: 11/20/18 Attend Phys: Carie Sauceda MD Discharge: Date of : 45 Report #: [id number] temperature is 98.3. LABORATORY DATA: White count is 15.1. His arterial Doppler is normal. IMPRESSION: This patient's symptoms appear to be secondary to focal pathology, which may be cellulitis or some other pathology. His neuropathy does not appear to be very prominent because reflexes and sensations are present. He will need an EMG to further evaluate that. We do not have any machine and that need to be done as an outpatient. RECOMMENDATION: 1. I discussed with the patient that as an outpatient he can make an appointment for EMG. 2. Presently, I think the emphasis should be to evaluate and treat other problems including the possibility of a cellulitis. Thank you very much for this referral and I will talk to you about this patient. <ELECTRONICALLY SIGNED> By: Glaileo García MD 11/28/18 1337 1510 0135Galileo García MD /nt
[2018-11-28 15:30] VITALS: BP 133/79
[2018-11-28 20:00] VITALS: BP 149/89
[2018-11-29 04:11] LABS: INR 2.6; PROTIME 26.8 Seconds (9.20-11.50)
[2018-11-29] MEDS ORDERED: HYDROCODONE-AP1 EAC6 PO (09:57)
[2018-11-29] MEDS ORDERED: TRAMADOL 50 MG50 MG PO (09:57)
[2018-11-29] MEDS ORDERED: GABAPENTIN 100100 MG PO (09:57)
[2018-11-29] MEDS ORDERED: ZYVOX600 MG PO (09:57)
[2018-11-29] MEDS ORDERED: LIDOPATCH1 EACH TOP (10:06)
[2018-11-29 10:57] VITALS: BP 140/89
[2018-11-29 11:10] VITALS: BP 140/89
[2018-11-29 12:04] VITALS: BP 140/89
[2018-11-29 15:44] VITALS: BP 140/89
== END 2018-11-29 15:40 | disposition home health service (06) | DRG 871 ==
LOC: M.ERS 08:44 → M.3W 12:10 → M.TBA-ER 12:10 → M.3W 14:06
PROVIDERS: Family Medicine; Personal Emergency Response Attendant; ADMIT Internal Medicine
DX: A41.01 Sepsis due to Methicillin susceptible Staphylococcus aureus (principal); J96.00 Acute respiratory failure, unspecified whether with hypoxia or hypercapnia; L03.116 Cellulitis of left lower limb; L03.115 Cellulitis of right lower limb; I77.6 Arteritis, unspecified; K59.09 Other constipation; G62.9 Polyneuropathy, unspecified; I10 Essential (primary) hypertension; R73.9 Hyperglycemia, unspecified; I48.2 Chronic atrial fibrillation; Z90.49 Acquired absence of other specified parts of digestive tract; Z79.01 Long term (current) use of anticoagulants; Z79.82 Long term (current) use of aspirin; Z79.899 Other long term (current) drug therapy

== ENCOUNTER → 2019-03-23 | Outpatient (CLI) | payer MEDICARE, OTHER ==
[~2019-03-23] MED LIST changes: +GABAPENTIN 100100 MG PO; +HYDROCODONE-AP1 EAC6 PO; +LIDOPATCH1 EACH TOP; +TRAMADOL 50 MG50 MG PO; +ZYVOX600 MG PO
[2019-03-23 16:40] LABS: CALCIUM 9.2 mg/dL (8.5-10.1); CREATININE 0.9 mg/dL (0.6-1.3); POTASSIUM 4.4 mmol/L (3.5-5.1)
== END ==
LOC: M.LAB 15:56
PROVIDERS: Internal Medicine Cardiovascular Disease
DX: I10 Essential (primary) hypertension (principal)

== ENCOUNTER 2019-07-10 17:38 | Inpatient (IN) | payer MEDICARE, OTHER ==
[~2019-07-10] VITALS: Ht 190.5 cm; Wt 136.1 kg
[2019-07-10 18:16] VITALS: BP 162/104
[2019-07-10 18:46] LABS: ABSOLUTE BASOPHILS 0.1 thou/uL (0.0-0.2); ABSOLUTE EOSINOPHILS 0.2 thou/uL (0.0-0.7); ABSOLUTE LYMPHOCYTES 1.8 thou/uL (0.8-5.3); ABSOLUTE MONOCYTES 0.6 thou/uL (0.0-1.2); ABSOLUTE NEUTROPHILS 4.8 thou/uL (1.6-8.1); BASOPHILS 0.9 %; EOSINOPHILS 2.9 %; HEMATOCRIT 44.3 % (42.0-52.0); HEMOGLOBIN 15.3 gm/dL (14.0-18.0); LYMPHOCYTES 23.7 %; MCH 33.6 pg (26.0-34.0); MCHC 34.6 g/dL (28.0-37.0); MPV 9.1 fl. (7.2-11.1); NUCLEATED RBCS 0 /100WBC; PLATELET COUNT* 140 thou/uL (150-400); POLYS 64.5 %; RBC 4.57 mil/uL (4.50-6.00); RDW-CV 15.9 % (10.5-14.5); WBC 7.4 thou/uL (4.0-11.0)
[2019-07-10 18:55] LABS: CALCIUM 8.8 mg/dL (8.5-10.1); CREATININE 0.9 mg/dL (0.6-1.3); POTASSIUM 4.2 mmol/L (3.5-5.1)
[2019-07-10] MEDS ORDERED: MAGNESIUM250 M1 PO (19:00)
[2019-07-10 19:01] LABS: APTT 40.6 Seconds (25.0-31.3); INR 2.5; PROTIME 25.1 Seconds (9.20-11.50)
[2019-07-10 19:06] LABS: ALBUMIN 3.9 g/dL (3.4-5.0); TOTAL BILIRUBIN 1.5 mg/dL (<0.1-1.0); TOTAL PROTEIN 6.8 g/dL (6.4-8.2)
[2019-07-10 22:05] VITALS: BP 179/108
[2019-07-10 22:13] VITALS: BP 185/116
[2019-07-10 22:15] VITALS: BP 192/119
[2019-07-10 23:01] VITALS: BP 185/116
[2019-07-11] VITALS: BP 136/97; BP 163/97
[2019-07-11 04:00] VITALS: BP 142/95
--- NOTE | 2019-07-11 06:17 | NUR ---
PATIENT ADMITTED TO UNIT AROUND 2210. ORIENTED TO ROOM AND CALL LIGHT. ADMISSION HX AND ASSESSMENT COMPLETED CHARTED, BLOOD PRESSURE ELEVATED. DR. HOGUE NOTIFIED, ORDERS RECEIVED AND CARRIED OUT FOR MEDICATION. IMPROVEMENT IN BP NOTED. PATIENT SHORT OF AIR ON EXERTION. ENCOURAGED TO KEEP O2 IN PLACE AND UTILIZE URINAL FOR ENERGY PRESERVATION. PATIENT AGREES AND UNDERSTANDS. OUTPUT MEASURED ACCURATELY BY STAFF. CALL LIGHT WITHIN REACH.
[2019-07-11 08:00] VITALS: BP 137/99
--- NOTE | 2019-07-11 09:54 | EKG ---
[place] [address] ELECTROCARDIOGRAM REPORT Name: NICOLASA GOMEZ Room: [address] ADM IN M.R.#: [id number] Admission: 07/10/19 Attend Phys: Oksana Marsh Discharge: Date of : 45 Report #: [id number] THIS REPORT FOR: //name// [facility] ED Test Date: 2019-07-10 Test Time: 18:35:42 Pat Name: NICOLASA GOMEZ Department: Room: [facility] Gender: M Letter Carrier: TDOWNS : 1945 Requested By: Kayleen Quiroz Order Number: [id number] MD: Gerber Mclean Measurements Intervals [place] Rate: 102 P: [place]: QRS: -16 QRSD: 119 T: 49 QT: 354 QTc: 462 Interpretive Statements Atrial fibrillation Paired ventricular premature complexes Nonspecific intraventricular conduction delay Minimal ST depression, lateral leads Compared to ECG 09/27/2018 20:20:14 Ventricular premature complex(es) now present ST (T wave) deviation now present Myocardial infarct finding no longer present Electronically Signed On 07-11-2019 9:54:11 RESEARCH ASST by Gerber Mclean [email or web address] <ELECTRONICALLY SIGNED> By: Gerber Mclean MD, FACC 07/11/19 0954 1835 1835 Gerber Mclean MD, FAC /EPI
[2019-07-11 11:33] VITALS: BP 146/95
--- NOTE | 2019-07-11 13:36 | 2DMMODE ---
[place] [address] 2 D/M-MODE ECHOCARDIOGRAM Name: NICOLASA GOMEZ Room: [address] ADM IN [facility]#: [id number] Admission: 07/10/19 Attend Phys: Oksana martinez Sa Discharge: Date of : 45 Date of Service: 07/11/19 1335 Report #: [id number] THIS REPORT FOR: //name// APPROVED REPORT Study performed: 07/11/2019 11:14:25 EXAM: Limited 2D, Doppler, and color-flow Echocardiogram Patient Location: In-Patient Room #: 210 Status: routine BSA: 2.61 HR: 100 bpm BP: 137/99 mmHg Rhythm: Atrial Fibrillation Other Information Study Quality: Good Indications Dyspnea Tricuspid Valve RAP Estimate: 10.00 mmHg TR Peak Gr.: 35.96 mmHg RVSP: 46.00 mmHg PA Pressure: 46.00 mmHg Left Ventricle Left ventricle is mildly dilated. There is global hypokinesis of the left ventricle. There is normal left ventricular wall thickness. Left ventricular systolic function is decreased. LVEF is 25-30%. Right Ventricle Right ventricle is dilated. The right ventricular systolic function is normal. Atria Left atrium is severely dilated. Right atrium is severely dilated. Aortic Valve The aortic valve is normal in structure. Mitral Valve There is mitral annular calcification. The mitral valve is normal in structure. Mild [place] [address] 2 D/M-MODE ECHOCARDIOGRAM Name: NICOLASA GOMEZ Room: 210- ADM IN M.R.#: [id number] Admission: 07/10/19 Attend Phys: Oksana martinez Sa Discharge: Date of : 45 Date of Service: 07/11/191334 Report #: [id number] Tricuspid Valve The tricuspid valve is normal in structure. Mild tricuspid regurgitation. estimated pa pressure 50 mm Hg Pulmonic Valve The pulmonary valve is normal in structure. Great Vessels The aortic root is normal in size. IVC is dilated. Pericardium There is no pericardial effusion. <Conclusion> Left ventricle is mildly dilated. LVEF is 25-30%. Right ventricle is dilated. Left atrium is severely dilated. Mild tricuspid regurgitation. estimated pa pressure 50 mm Hg <ELECTRONICALLY SIGNED> By: Gerber Mclean MD, FACC 07/11/191334 34 34 Gerber Mclean MD, FACC /INF
--- NOTE | 2019-07-11 15:12 | NUR ---
Pt out of the room at U/S, CM to f/u later
[2019-07-11 15:58] VITALS: BP 149/90
--- NOTE | 2019-07-11 16:15 | NUR ---
PATIENT SEEN BY CARDIOLOGY THIS AM. US SHAY AND DOPPLER OF ROBERTO LE'S ORDERED AND DONE THIS AFTERNOON, AWAITING RESULTS. PER CARDIOLOGY PATIENT WILL GLENNA HAVE OUTPATIENT STRESS TEST. PATIENT UPDATED ON ECHO RESULTS. PATIENT VOIDING LARGE AMOUNTS OF CLEAR/YELLOW URINE, SCHED LASIX GIVEN THIS AM. IV SL. UP AD [place]. 02 2L NC PRN, CPAP AT HS AND FOR NAPS. CARDIOLOGY AWARE THAT PATIENT HR HIGH 160'S WHEN UP TO BATHROOM OR JUST RESTING IN BED. PATIENT HR DID COME RIGHT BACK DOWN. ORDERS RECEIVED FROM [facility] CARDIOLOGY TO GIVE ONE TIME IV METOPROLOL DOSE. PATIENT REMAINS TRACING AFIBB ON [employer].
[2019-07-11 20:15] VITALS: BP 133/88
[2019-07-12] VITALS: BP 131/85
[2019-07-12 04:00] VITALS: BP 112/80
--- NOTE | 2019-07-12 04:39 | NUR ---
PATIENT PROGRESSING TOWARDS GOALS: PATIENT DENIES CHEST PAIN/DISCOMFORT AND SHORTNESS OF AIR THROUGHOUT SHIFT. PATIENT WEARING HOME CPAP WHILE SLEEPING. LEFT LEG REMAINS EDEMATOUS, HOWEVER, PATIENT DIURESING WELL WITH GOOD URINE OUTPUT. CALL LIGHT WITHIN REACH
[2019-07-12 05:32] LABS: CALCIUM 8.7 mg/dL (8.5-10.1); CREATININE 0.9 mg/dL (0.6-1.3); POTASSIUM 3.4 mmol/L (3.5-5.1)
--- NOTE | 2019-07-12 07:20 | NUR ---
CHANGE OF SHIFT, BEDSIDE REPORT GIVEN PATIENT SEEN AT BEDSIDE, IN BED ASLEEP ASSUMED PATIENT CARE
--- NOTE | 2019-07-12 07:49 | CON ---
[address] [address] CONSULTATION Name: NICOLASA GOMEZ Room: [address] [facility].R.#: [id number] Admission: 07/10/19 Attend Phys: Oksana Marsh Discharge: Date of : 45 Report #: [id number] THIS REPORT FOR: //name// CC: Oksana Null DATE OF SERVICE: 07/11/2019 PULMONARY CONSULTATION PHYSICIAN REQUESTING CONSULTATION: Dr. Oksana Maxwell. REASON FOR CONSULTATION: 1. Probable interstitial lung disease. 2. Dyspnea on exertion. HISTORY OF PRESENT ILLNESS: The patient is a pleasant 73-year-old gentleman with past medical history that is significant for congestive heart failure, permanent atrial fibrillation, obstructive sleep apnea on CPAP, hypertension and history of coronary artery disease, status post CABG. The patient reported that he has been having dyspnea on exertion for the last 6 months. The patient reported that his dyspnea became somewhat worse over the last 1 week. This has been associated with bilateral lower limb swelling. 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 The patient reported history suggestive of dyspnea on exertion with walking more than half a block. The patient denies history of wheezing or persistent cough. He denies history of asthma or COPD. No history of fevers or chills or pneumonia in the past. He is a lifetime nonsmoker. The patient reported that he was diagnosed with obstructive sleep apnea back in [place] [address] CONSULTATION Name: NICOLASA GOMEZ Ramin Room: [address] IN [facility].#: [id number] Admission: 07/10/19 Attend Phys: Oksana Marsh Discharge: Date of : 45 Report #: [id number] He has been using CPAP machine. Unfortunately, his CPAP machine was never checked for several years. He generally feels fresh in the morning. The patient was seen in the Emergency Department and his initial chest x-ray suggestive of probable interstitial lung disease. However, his CT scan of the chest showed no evidence of interstitial lung disease. REVIEW OF SYSTEMS: As described above. Remaining 10-point review of systems was otherwise unremarkable. PAST MEDICAL HISTORY: Positive for obesity, obstructive sleep apnea, hypertension, CABG surgery, congestive heart failure, and permanent atrial fibrillation, on anticoagulation. PAST SURGICAL HISTORY: History of multiple cardioversions and hernia repair. SOCIAL HISTORY: The patient is a lifetime nonsmoker. He denies alcohol or illicit drug use. FAMILY HISTORY: Negative for lung disease or diabetes. PHYSICAL EXAMINATION: The patient had the following: VITAL SIGNS: Temperature 36.9, heart rate 94, respiratory rate 18, blood pressure was 137/99, saturation 96% on 2 liters nasal cannula oxygen. GENERAL: Showed an obese gentleman who is not in apparent distress, who is conscious, oriented x 3. HEENT: Showed atraumatic head. Pupils are round, reactive to light and accommodation. NECK: Supple. JVD is noted. CARDIOVASCULAR: Atrial fibrillation with controlled rate. No wheezes or crackles. CHEST: Showed fair air entry bilaterally with no obvious wheezes or crackles. ABDOMEN: Soft, lax, nontender. Normal bowel sounds. EXTREMITIES: Lower limb examination showed 2+ edema of the lower limbs with venous stasis. No clubbing or cyanosis. LABORATORY DATA: His labs were as follows: Troponin is below 0.06. His WBC count 7.4, hemoglobin of 15.3, platelets of 140. Sodium 138, potassium 4.2, chloride 105, bicarb 27, BUN of 22, creatinine of 0.9. ProBNP was 2481. His chest x-ray showed diffuse opacity throughout the lungs, likely interstitial lung disease; however, CT scan of the chest that was done on 07/10/2019 [place] [address] CONSULTATION Name: NICOLASA GOMEZ Room: [address] IN [facility]#: [id number] Admission: 07/10/19 Attend Phys: Oksana Marsh Discharge: Date of : 45 Report #: [id number] no significant lung infiltrate or scarring and no pulmonary embolism, but it showed cardiomegaly with small right sided pleural effusion. ASSESSMENT AND PLAN: 1. Dyspnea on exertion that is multifactorial. 2. Right-sided pleural effusion. 3. Acute decompensated right heart failure. 4. Obstructive sleep apnea. 5. Coronary artery disease. 6. Permanent atrial fibrillation. PLAN: The patient does not have evidence of pulmonary embolism or interstitial lung disease on CT angio of the chest. I believe his dyspnea on exertion is most likely multifactorial due to underlying heart failure and permanent atrial fibrillation and deconditioning and body habitus. He is a lifetime nonsmoker. No evidence of pneumonia or COPD. However, he would benefit from pulmonary function test as an outpatient. He was noted to have elevated pulmonary pressure and an outside echo that was done in 11/2018. I suspect his pulmonary hypertension is most likely secondary to his underlying congestive heart failure. I will defer to Cardiology to decide about the utility for right heart catheterization after optimizing his heart failure management. He has a history of obstructive sleep apnea and he has been using a CPAP machine. However, his CPAP machine was never checked. I advised him to make sure that we check his CPAP machine compliance in order to ensure adequate control of sleep apnea since suboptimal control of sleep apnea might contribute to worsening heart failure. Thank you for giving us the opportunity to participate in the management of this patient. <ELECTRONICALLY SIGNED> By: Carol Ramirez MD 07/12/19 0749 [id number] Lori Mcnair MD /nt
[2019-07-12 08:00] VITALS: BP 137/94
[2019-07-12 12:16] VITALS: BP 119/88
[2019-07-12 15:50] VITALS: BP 118/71
[2019-07-12 20:00] VITALS: BP 111/89
[2019-07-13] VITALS: BP 128/85
[2019-07-13 04:00] VITALS: BP 112/77
--- NOTE | 2019-07-13 04:14 | NUR ---
ASSUMED PT CARE AT APPROX 1930. PT IS AWAKE AND ORIENTED X4. VSS ON ROOM AIR. PT WEARS HOME CPAP AT HS. PT DENIES PAIN/DISCOMFORT.NO DYSPNEA/DESATURATIONS THROUGHOUT THIS SHIFT. PT IS ABLE TO SLEEP THROUGH THE NIGHT. CALL LIGHT WITHIN REACH. HOURLY ROUNDING DONE FOR PT SAFETY.
[2019-07-13 04:53] LABS: INR 2.8; PROTIME 27.2 Seconds (9.20-11.50)
[2019-07-13 05:04] LABS: CALCIUM 8.8 mg/dL (8.5-10.1); POTASSIUM 3.7 mmol/L (3.5-5.1)
[2019-07-13 08:45] VITALS: BP 144/96
--- NOTE | 2019-07-13 08:45 | NUR ---
ASSUMED CARE AFTER REPORT APPROX 0730. OX4, ABLE TO EXPRESS NEEDS TO STAFF. ASSESSMENT COMPLETE, VS OBTAINED, WNL. O2 SAT 95% RA. CONFIGURATION MANAGEMENT ARCHITECT IN PLACE, SR. UP AD ANUSKHA IN ROOM. NO C/O PAIN, SOA, N/V, OR OTHER DISTRESS. CALL LIGHT WITHIN REACH. HOURLY ROUNDING FOR SAFETY AND PATIENT NEEDS.
[2019-07-13 11:14] VITALS: BP 144/96
--- NOTE | 2019-07-13 11:19 | NUR ---
PATIENT REFUSES ALL VITAMINS AT [employer] TIME. PATIENT STATES "THE INSURANCE COMPANY WON'T PAY FOR VITAMINS. I THOUGHT THOSE WERE REMOVED FROM THE PLAN."
[2019-07-13] MEDS ORDERED: TORSEMIDE20 MG PO (12:21)
--- NOTE | 2019-07-13 14:15 | NUR ---
PATIENT WITH COMPLETE DISCHARGE ORDER. REVIEWED DC INSTRUCTIONS AND MEDICATION LIST WITH PATIENT. ANSWERED QUESTIONS TO PATIENT SATISFACTION. 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 MONITOR CLEANED AND PLACED IN POCKET FOR ROOM 210. PATIENT IN POSSESSION OF ALL BELONGINGS. PATIENT TRANSPORTED TO HOSPITAL FRONT ENTRANCE VIA WC AND ALLIGATOR HUNTER.
== END 2019-07-13 15:06 | disposition home or self-care (01) | DRG 292 ==
LOC: M.2W 21:11 → M.TBA-ER 21:11 → M.2W 21:59
PROVIDERS: Nurse Practitioner Family; Registered Nurse; ADMIT Family Medicine
DX: I11.0 Hypertensive heart disease with heart failure (principal); D68.69 Other thrombophilia; I48.20 Chronic atrial fibrillation, unspecified; I48.21 Permanent atrial fibrillation; G47.33 Obstructive sleep apnea (adult) (pediatric); I25.10 Atherosclerotic heart disease of native coronary artery without angina pectoris; E66.9 Obesity, unspecified; I27.20 Pulmonary hypertension, unspecified; I25.5 Ischemic cardiomyopathy; I87.8 Other specified disorders of veins; I50.43 Acute on chronic combined systolic (congestive) and diastolic (congestive) heart failure; Z90.49 Acquired absence of other specified parts of digestive tract; Z79.899 Other long term (current) drug therapy; Z79.82 Long term (current) use of aspirin; Z99.81 Dependence on supplemental oxygen; Z95.1 Presence of aortocoronary bypass graft; Z79.01 Long term (current) use of anticoagulants; Z91.19 Patient's noncompliance with other medical treatment and regimen; Z88.8 Allergy status to other drugs, medicaments and biological substances; Z68.37 Body mass index [BMI] 37.0-37.9, adult

== ENCOUNTER → 2019-11-27 | Outpatient (CLI) | payer MEDICARE, OTHER ==
[~2019-11-27] MED LIST changes: +MAGNESIUM250 M1 PO; +TORSEMIDE20 MG PO
== END ==
LOC: M.ULTRA 15:38
DX: R22.42 Localized swelling, mass and lump, left lower limb (principal)

== ENCOUNTER → 2020-10-14 | Outpatient (CLI) | payer MEDICARE, OTHER ==
[2020-10-14 15:23] LABS: ABSOLUTE BASOPHILS 0.1 thou/uL (0.0-0.2); ABSOLUTE EOSINOPHILS 0.3 thou/uL (0.0-0.7); ABSOLUTE LYMPHOCYTES 1.8 thou/uL (0.8-5.3); ABSOLUTE MONOCYTES 0.6 thou/uL (0.0-1.2); ABSOLUTE NEUTROPHILS 3.8 thou/uL (1.6-8.1); BASOPHILS 1.3 %; HEMATOCRIT 40.7 % (42.0-52.0); HEMOGLOBIN 14.1 gm/dL (14.0-18.0); LYMPHOCYTES 26.8 %; MCH 33.8 pg (26.0-34.0); MCHC 34.7 g/dL (28.0-37.0); MCV 97.3 fL (80.0-100.0); MONOCYTES 8.8 %; MPV 8.2 fl. (7.2-11.1); NUCLEATED RBCS 0 /100WBC; PLATELET COUNT* 141 thou/uL (150-400); POLYS 58.1 %; RBC 4.18 mil/uL (4.50-6.00); WBC 6.6 thou/uL (4.0-11.0)
[2020-10-14 15:40] LABS: CALCIUM 8.8 mg/dL (8.5-10.1); POTASSIUM 4.5 mmol/L (3.5-5.1)
== END ==
LOC: M.LAB 14:53
PROVIDERS: ATTEND Internal Medicine Cardiovascular Disease
DX: I48.21 Permanent atrial fibrillation (principal); I10 Essential (primary) hypertension; E78.5 Hyperlipidemia, unspecified

== ENCOUNTER → 2021-04-17 | Outpatient (CLI) | payer MEDICARE, OTHER ==
[2021-04-17 15:34] LABS: ABSOLUTE BASOPHILS 0.1 thou/uL (0.0-0.2); ABSOLUTE EOSINOPHILS 0.4 thou/uL (0.0-0.7); ABSOLUTE LYMPHOCYTES 1.8 thou/uL (0.8-5.3); ABSOLUTE MONOCYTES 0.6 thou/uL (0.0-1.2); ABSOLUTE NEUTROPHILS 3.9 thou/uL (1.6-8.1); BASOPHILS 0.8 %; EOSINOPHILS 5.9 %; HEMATOCRIT 41.1 % (42.0-52.0); MCH 32.9 pg (26.0-34.0); MCV 96.7 fL (80.0-100.0); MONOCYTES 9.3 %; MPV 8.6 fl. (7.2-11.1); NUCLEATED RBCS 0 /100WBC; PLATELET COUNT* 131 thou/uL (150-400); RBC 4.25 mil/uL (4.50-6.00); RDW-CV 14.4 % (10.5-14.5); WBC 6.8 thou/uL (4.0-11.0)
[2021-04-17 15:44] LABS: INR 2.2; PROTIME 22.3 Seconds (9.20-11.50)
[2021-04-17 15:54] LABS: ANION GAP 4 mmol/L (7-16); BUN 27 mg/dL (7-18); CHLORIDE 104 mmol/L (98-107); CHOLESTEROL 199 mg/dL (<200); CO2 31 mmol/L (21-32); CREATININE 1.2 mg/dL (0.6-1.3); GLUCOSE 86 mg/dL (70-99); HDL CHOLESTEROL 44 mg/dL (>40); LDL CHOLESTEROL 134 mg/dL (<100); POTASSIUM 4.4 mmol/L (3.5-5.1); SERUM ASSESSMENT Clear; SGOT 31 U/L (15-37); SGPT 42 U/L (30-65); SODIUM 139 mmol/L (136-145); TC:HDL 4.5 Ratio (Not establshd); TRIGLYCERIDE 106 mg/dL (<150); VLDL 21 mg/dL (<40)
== END ==
LOC: M.LAB 14:53
PROVIDERS: ATTEND Internal Medicine Cardiovascular Disease
DX: I10 Essential (primary) hypertension (principal); I48.21 Permanent atrial fibrillation; E78.5 Hyperlipidemia, unspecified